=== PATIENT | female | born 1995 | race Caucasian/White ===

== ENCOUNTER 2016-08-26 11:06 | Emergency (ER) | payer MEDICAID ==
[~2016-08-26] VITALS: Ht 154.9 cm; Wt 88.5 kg
[2016-08-26 12:16] VITALS: BP 120/75
== END 2016-08-26 12:16 | disposition home or self-care (01) ==
LOC: ED 11:06
DX: H66.91 Otitis media, unspecified, right ear (principal)

== ENCOUNTER 2016-10-02 21:37 | Emergency (ER) | payer MEDICAID ==
[2016-10-02 21:48] VITALS: BP 117/60
== END 2016-10-02 22:33 | disposition home or self-care (01) ==
LOC: ED 21:37
DX: R10.13 Epigastric pain (principal); M79.1 Myalgia; R11.2 Nausea with vomiting, unspecified; Z88.8 Allergy status to other drugs, medicaments and biological substances

== ENCOUNTER 2016-10-30 19:52 | Emergency (ER) | payer MEDICAID ==
[2016-10-30 21:43] VITALS: BP 114/72
== END 2016-10-30 21:43 | disposition home or self-care (01) ==
LOC: ED 19:52
DX: S93.492A Sprain of other ligament of left ankle, initial encounter (principal); Z88.8 Allergy status to other drugs, medicaments and biological substances; X37.1XXA Tornado, initial encounter; Y93.01 Activity, walking, marching and hiking; Y92.89 Other specified places as the place of occurrence of the external cause; Y99.8 Other external cause status
CPT/HCPCS: 36415; J1885; Q0092

== ENCOUNTER 2016-11-02 21:11 | Emergency (ER) | payer MEDICAID ==
[2016-11-02 21:21] VITALS: BP 114/72
== END 2016-11-02 23:30 | disposition home or self-care (01) ==
LOC: ED 21:11
DX: L03.311 Cellulitis of abdominal wall (principal); Z88.8 Allergy status to other drugs, medicaments and biological substances

== ENCOUNTER 2016-11-17 17:47 | Emergency (ER) | payer MEDICAID ==
[~2016-11-17] VITALS: Ht 154.9 cm; Wt 85.9 kg
[2016-11-17 20:18] VITALS: BP 115/62
== END 2016-11-17 21:59 | disposition home or self-care (01) ==
LOC: ED 17:47
DX: L03.311 Cellulitis of abdominal wall (principal)
CPT/HCPCS: J0696